=== PATIENT | male | born 1940 | race Caucasian/White ===

== ENCOUNTER → 2017-05-11 | Outpatient (CLI) | payer BC ==
--- NOTE | 2017-05-11 11:49 | DIAGNOSTIC IMAGING REPORT ---
RIGHT HAND MIN 3 VIEWS ROUTINE CLINICAL HISTORY: Right hand arthralgia COMPARISON: None. DISCUSSION: No fractures or dislocations are visualized. No bony erosions are evident. IMPRESSION: Unremarkable measuring radiographic evaluation of the right hand for age. No evidence of bony erosive disease. Electronically signed by: Fortino Pennington M.D. 05/11/2017 11:47 AM Dictated Date/Time: 05/11/2017 11:47 AM
--- NOTE | 2017-05-11 11:51 | DIAGNOSTIC IMAGING REPORT ---
LEFT HAND MIN 3 VIEWS ROUTINE CLINICAL HISTORY: 77 years-old Male presenting with ARTHRALGIA. TECHNIQUE: Frontal, oblique, and lateral views of the left hand were obtained. COMPARISON: Correlation made to plain radiographs of the right hand performed the same day. FINDINGS: No acute fracture or malalignment. Minimal degenerative change may be present at the first carpometacarpal articulation. No other degenerative changes evident. Regional soft tissues normal. IMPRESSION: Minimal degenerative change at the first carpometacarpal, which would be characteristic location for osteoarthritis. Electronically signed by: Tez Milton M.D. 05/11/2017 11:49 AM Dictated Date/Time: 05/11/2017 11:48 AM
== END | disposition home or self-care (01) ==
LOC: C.RAD1850 09:19
PROVIDERS: ATTEND Nurse Practitioner Family
DX: N20.1 Calculus of ureter (principal); M25.50 Pain in unspecified joint

== ENCOUNTER → 2017-05-12 | Outpatient (CLI) | payer BC ==
[2017-05-12 11:13] LABS: BASO % 0.3 %; BASO ABS # 0.02 K/uL (0-0.2); COMPLETE YES; EOS % 2.6 %; IG% 0.1 %; LYMPH % 25.6 %; LYMPH ABS # 1.78 K/uL (1.2-3.4); MEAN CELL VOLUME 85.4 fL (80-100); MEAN CORPUSCULAR HEMOGLOBIN 26.7 pg (25-34); MEAN CORPUSCULAR HGB CONC 31.3 g/dl (32-36); MONO % 10.1 %; NEUT % 61.3 %; PLATELET COUNT 201 K/uL (130-400); RED BLOOD COUNT 4.45 M/uL (4.7-6.1); WHITE BLOOD COUNT 6.95 K/uL (4.8-10.8)
[2017-05-12 13:59] LABS: ALT/SGPT 14 U/L (12-78); AST/SGOT 15 U/L (15-37); BLOOD UREA NITROGEN 20 mg/dl (7-18); C-REACTIVE PROTEIN 1.97 mg/dl (0-0.29); CALCIUM 8.8 mg/dl (8.5-10.1); CARBON DIOXIDE 28 mmol/L (21-32); CHLORIDE 105 mmol/L (98-107); CHOLESTEROL 154 mg/dl (0-200); GLUCOSE 84 mg/dl (70-99); SODIUM 140 mmol/L (136-145); TRIGLYCERIDES 134 mg/dl (0-150); VERY LOW DENSITY LIPOPROT CALC 27 mg/dl
[2017-05-12 14:02] LABS: ALB/GLOB RATIO 0.9 (0.9-2); ALKALINE PHOSPHATASE 96 U/L (45-117); CHOLESTEROL/HDL RATIO 5.3; HDL CHOLESTEROL 29 mg/dl; LDL CHOLESTEROL CALCULATED 98 mg/dl; RHEUMATOID FACTOR < 10.0 U/mL (0-15)
[2017-05-12 14:10] LABS: LYME DISEASE AB IGG NEG (NEG); LYME DISEASE AB IGM NEG (NEG)
== END | disposition home or self-care (01) ==
LOC: C.LABBC 09:03
PROVIDERS: ATTEND Internal Medicine
DX: M25.50 Pain in unspecified joint (principal); E78.5 Hyperlipidemia, unspecified; M85.80 Other specified disorders of bone density and structure, unspecified site; E55.9 Vitamin D deficiency, unspecified

== ENCOUNTER → 2017-06-04 | Outpatient (CLI) | payer BC ==
--- NOTE | 2017-06-04 10:04 | DIAGNOSTIC IMAGING REPORT ---
L WRIST MIN 3 VIEWS ROUTINE CLINICAL HISTORY: Inflammatory polyarthritis. COMPARISON: Left hand radiographs May 11, 2017. FINDINGS: Alignment of the left wrist is anatomic. No fracture or suspicious osseous lesion is present. No erosions are identified on this examination. 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 IMPRESSION: 1. No acute fracture. 2. No radiographic evidence of an erosive or inflammatory arthropathy. Electronically signed by: Meliton Kaur M.D. 06/04/2017 10:03 AM Dictated Date/Time: 06/04/2017 10:02 AM
--- NOTE | 2017-06-04 10:05 | DIAGNOSTIC IMAGING REPORT ---
R HAND MIN 3 VIEWS ROUTINE CLINICAL HISTORY: Inflammatory polyarthritis. COMPARISON: Right hand radiographs May 11, 2017. FINDINGS: Alignment of the right hand is anatomic. No fracture or suspicious osseous lesion is identified. No erosions are identified. There is no significant joint space narrowing. There is minimal osteophytosis of several articulations of the right hand. IMPRESSION: 1. No significant abnormality of the right hand. 2. No radiographic evidence of an erosive/inflammatory arthropathy. Electronically signed by: Meliton Kaur M.D. 06/04/2017 10:04 AM Dictated Date/Time: 06/04/2017 10:03 AM
--- NOTE | 2017-06-04 10:09 | DIAGNOSTIC IMAGING REPORT ---
L HAND MIN 3 VIEWS ROUTINE CLINICAL HISTORY: Inflammatory polyarthritis. COMPARISON: Left hand radiographs May 11, 2017. FINDINGS: A ring on the fourth finger is present. Evaluation of several digits is slightly suboptimal due to flexion. No acute fracture or suspicious lesion is evident. There is minimal joint space narrowing and osteophytosis within several articulations of the left hand. These include the left first carpometacarpal joint and the distal interphalangeal joint of the second digit. No erosions are identified. IMPRESSION: 1. 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 2. No radiographic evidence of an erosive/inflammatory arthropathy. Electronically signed by: Meliton Kaur M.D. 06/04/2017 10:07 AM Dictated Date/Time: 06/04/2017 10:04 AM
[2017-06-04 10:44] LABS: URINE APPEARANCE CLEAR (CLEAR); URINE BILIRUBIN NEG (NEG); URINE COLOR YELLOW; URINE EPITHELIAL CELL AUTO 0-5 /lpf (0-5); URINE NITRITE NEG (NEG); URINE PH 6.5 (4.5-7.5); URINE SPECIFIC GRAVITY 1.019 (1.000-1.030); UROBILINOGEN NEG (NEG)
[2017-06-04 10:45] LABS: MANUAL MICROSCOPIC REQUIRED? NO; REVIEW REQ? NO
== END | disposition home or self-care (01) ==
LOC: C.LAB1850 09:18
PROVIDERS: ATTEND Internal Medicine Rheumatology
DX: M06.4 Inflammatory polyarthropathy (principal); M70.20 Olecranon bursitis, unspecified elbow; R70.0 Elevated erythrocyte sedimentation rate; M19.042 Primary osteoarthritis, left hand

== ENCOUNTER → 2017-07-09 | Outpatient (CLI) | payer BC ==
[2017-07-09 10:53] LABS: BASO % 0.4 %; BASO ABS # 0.03 K/uL (0-0.2); COMPLETE YES; EOS % 5.1 %; HEMATOCRIT 31.5 % (42-52); IG% 0.3 %; LYMPH % 19.7 %; LYMPH ABS # 1.36 K/uL (1.2-3.4); MEAN CELL VOLUME 79.1 fL (80-100); MEAN CORPUSCULAR HEMOGLOBIN 23.6 pg (25-34); MEAN CORPUSCULAR HGB CONC 29.8 g/dl (32-36); MEAN PLATELET VOLUME 10.1 fL (7.4-10.4); MONO % 13.8 %; NEUT % 60.7 %; PLATELET COUNT 153 K/uL (130-400); RED BLOOD COUNT 3.98 M/uL (4.7-6.1); WHITE BLOOD COUNT 6.89 K/uL (4.8-10.8)
[2017-07-09 11:22] LABS: BLOOD UREA NITROGEN 22 mg/dl (7-18); BUN/CREATININE RATIO 18.7 (10-20); CALCIUM 8.6 mg/dl (8.5-10.1); CARBON DIOXIDE 27 mmol/L (21-32); CHLORIDE 105 mmol/L (98-107); GLUCOSE 89 mg/dl (70-99); POTASSIUM 4.4 mmol/L (3.5-5.1); SODIUM 139 mmol/L (136-145)
[2017-07-09 11:27] LABS: ALB/GLOB RATIO 0.9 (0.9-2); ALKALINE PHOSPHATASE 119 U/L (45-117); ALT/SGPT 37 U/L (12-78); AST/SGOT 31 U/L (15-37); FERRITIN 10.7 ng/ml (8.0-388.0); TOTAL IRON BINDING CAPACITY 377 mcg/dl (250-450)
== END | disposition home or self-care (01) ==
LOC: C.LABBC 09:02
PROVIDERS: ATTEND Internal Medicine
DX: D64.9 Anemia, unspecified (principal)

== ENCOUNTER → 2017-07-12 | Outpatient (CLI) | payer BC ==
[2017-07-12 10:46] LABS: BASO % 0.9 %; BASO ABS # 0.07 K/uL (0-0.2); COMPLETE YES; EOS % 3.6 %; HEMATOCRIT 33.8 % (42-52); IG% 0.3 %; LYMPH % 21.8 %; LYMPH ABS # 1.64 K/uL (1.2-3.4); MEAN CELL VOLUME 78.4 fL (80-100); MEAN CORPUSCULAR HEMOGLOBIN 23.7 pg (25-34); MEAN CORPUSCULAR HGB CONC 30.2 g/dl (32-36); MEAN PLATELET VOLUME 9.6 fL (7.4-10.4); MONO % 15.8 %; NEUT % 57.6 %; PLATELET COUNT 146 K/uL (130-400); RED BLOOD COUNT 4.31 M/uL (4.7-6.1); WHITE BLOOD COUNT 7.54 K/uL (4.8-10.8)
== END | disposition home or self-care (01) ==
LOC: C.LABBC 08:39
PROVIDERS: ATTEND Internal Medicine
DX: D64.9 Anemia, unspecified (principal)

== ENCOUNTER → 2017-07-16 | Outpatient (CLI) | payer BC ==
[2017-07-16 10:46] LABS: BASO % 1.2 %; BASO ABS # 0.09 K/uL (0-0.2); COMPLETE YES; EOS % 3.1 %; HEMATOCRIT 34.5 % (42-52); IG% 0.1 %; LYMPH % 26.8 %; MEAN CELL VOLUME 78.1 fL (80-100); MEAN CORPUSCULAR HEMOGLOBIN 23.5 pg (25-34); MEAN CORPUSCULAR HGB CONC 30.1 g/dl (32-36); MEAN PLATELET VOLUME 10.6 fL (7.4-10.4); MONO % 14.7 %; NEUT % 54.1 %; PLATELET COUNT 207 K/uL (130-400); RED BLOOD COUNT 4.42 M/uL (4.7-6.1); WHITE BLOOD COUNT 7.47 K/uL (4.8-10.8)
== END | disposition home or self-care (01) ==
LOC: C.LAB 09:34
PROVIDERS: ATTEND Internal Medicine
DX: D64.9 Anemia, unspecified (principal)

== ENCOUNTER → 2017-08-10 | Outpatient (CLI) | payer BC ==
[2017-08-10 11:10] LABS: HEMATOCRIT 35.6 % (42-52); MEAN CELL VOLUME 77.1 fL (80-100); MEAN CORPUSCULAR HEMOGLOBIN 23.6 pg (25-34); MEAN CORPUSCULAR HGB CONC 30.6 g/dl (32-36); MEAN PLATELET VOLUME 9.9 fL (7.4-10.4); PLATELET COUNT 169 K/uL (130-400); RED BLOOD COUNT 4.62 M/uL (4.7-6.1); WHITE BLOOD COUNT 4.95 K/uL (4.8-10.8)
[2017-08-10 11:30] LABS: FERRITIN 8.1 ng/ml (8.0-388.0); PROSTATE SPECIFIC ANTIGEN 0.692 ng/ml (0.000-4.000)
== END | disposition home or self-care (01) ==
LOC: C.LABBC 08:39
PROVIDERS: ATTEND Internal Medicine
DX: Z12.5 Encounter for screening for malignant neoplasm of prostate (principal); D64.9 Anemia, unspecified

== ENCOUNTER → 2017-09-07 | Outpatient (CLI) | payer BC ==
[2017-09-07 11:01] LABS: HEMATOCRIT 42.2 % (42-52); HEMOGLOBIN 13.1 g/dL (14.0-18.0); MEAN CELL VOLUME 81.3 fL (80-100); MEAN CORPUSCULAR HEMOGLOBIN 25.2 pg (25-34); MEAN PLATELET VOLUME 10.2 fL (7.4-10.4); PLATELET COUNT 135 K/uL (130-400); RED CELL DISTRIBUTION WIDTH CV 24.2 % (11.5-14.5); RED CELL DISTRIBUTION WIDTH SD 67.9 fL (36.4-46.3); WHITE BLOOD COUNT 4.24 K/uL (4.8-10.8)
[2017-09-07 11:28] LABS: BLOOD UREA NITROGEN 19 mg/dl (7-18); CALCIUM 9.1 mg/dl (8.5-10.1); CARBON DIOXIDE 27 mmol/L (21-32); CREATININE 1.16 mg/dl (0.60-1.40); GLUCOSE 94 mg/dl (70-99); POTASSIUM 3.9 mmol/L (3.5-5.1); SODIUM 137 mmol/L (136-145)
== END | disposition home or self-care (01) ==
LOC: C.LABBC 07:54
PROVIDERS: ATTEND Internal Medicine
DX: D64.9 Anemia, unspecified (principal)

== ENCOUNTER → 2017-11-24 | Outpatient (CLI) | payer BC ==
[2017-11-24 11:35] LABS: BASO % 0.6 %; BASO ABS # 0.03 K/uL (0-0.2); EOS % 1.8 %; EOS ABS # 0.09 K/uL (0-0.5); HEMATOCRIT 45.3 % (42-52); IG# 0.01 K/uL (0.00-0.02); LYMPH ABS # 1.62 K/uL (1.2-3.4); MEAN CELL VOLUME 91.5 fL (80-100); MEAN CORPUSCULAR HEMOGLOBIN 30.3 pg (25-34); MEAN CORPUSCULAR HGB CONC 33.1 g/dl (32-36); MEAN PLATELET VOLUME 9.8 fL (7.4-10.4); MONO % 16.1 %; MONO ABS # 0.79 K/uL (0.11-0.59); NEUT % 48.3 %; NEUT ABS # 2.37 K/uL (1.4-6.5); PLATELET COUNT 123 K/uL (130-400); RED CELL DISTRIBUTION WIDTH CV 16.1 % (11.5-14.5); RED CELL DISTRIBUTION WIDTH SD 52.6 fL (36.4-46.3); WHITE BLOOD COUNT 4.91 K/uL (4.8-10.8)
[2017-11-24 11:56] LABS: ALBUMIN 3.7 gm/dl (3.4-5.0); ALT/SGPT 18 U/L (12-78); AST/SGOT 17 U/L (15-37); BLOOD UREA NITROGEN 19 mg/dl (7-18); CALCIUM 8.9 mg/dl (8.5-10.1); CARBON DIOXIDE 26 mmol/L (21-32); CREATININE 1.18 mg/dl (0.60-1.40); GLUCOSE 92 mg/dl (70-99); POTASSIUM 4.3 mmol/L (3.5-5.1); SODIUM 139 mmol/L (136-145)
[2017-11-24 12:03] LABS: ALKALINE PHOSPHATASE 71 U/L (45-117); CHOLESTEROL 178 mg/dl (0-200); LDL CHOLESTEROL CALCULATED 108 mg/dl; TOTAL PROTEIN 7.3 gm/dl (6.4-8.2)
== END | disposition home or self-care (01) ==
LOC: C.LABBC 08:06
PROVIDERS: ATTEND Internal Medicine
DX: M12.80 Other specific arthropathies, not elsewhere classified, unspecified site (principal); E78.5 Hyperlipidemia, unspecified; M06.4 Inflammatory polyarthropathy; D64.9 Anemia, unspecified; E55.9 Vitamin D deficiency, unspecified

== ENCOUNTER → 2018-03-14 | Outpatient (CLI) | payer BC | END | disposition home or self-care (01) | LOC: C.LABBC 08:54 | PROVIDERS: ATTEND Internal Medicine | DX: T14.90XA Injury, unspecified, initial encounter (principal); W57.XXXA Bitten or stung by nonvenomous insect and other nonvenomous arthropods, initial encounter ==